=== PATIENT | female | born 1980 | race Hispanic/Latino ===

== ENCOUNTER 2025-09-03 01:13 | Emergency (ER) | payer SELFPAY ==
[2025-09-03] MEDS ORDERED: HYDROcodone/Acetaminophen 5/325 mg Tablet ONE (02:25)
== END 2025-09-03 03:13 | disposition home or self-care (01) ==
LOC: MADERS 01:13
DX: S52.572A Other intraarticular fracture of lower end of left radius, initial encounter for closed fracture (principal); F17.210 Nicotine dependence, cigarettes, uncomplicated; V69.9XXA Occupant (driver) (passenger) of heavy transport vehicle injured in unspecified traffic accident, initial encounter; Y92.410 Unspecified street and highway as the place of occurrence of the external cause
CPT/HCPCS: 25605; 99284; G0390